=== PATIENT | male | born 1955 | race Two or more races ===

== ENCOUNTER 2024-03-04 17:11 | Inpatient (IN) | payer OTHER ==
[2024-03-04 18:30] VITALS: BMI 18.2
[2024-03-04] MEDS ORDERED: ACETAMINOPHEN 325 MG TABLET (FP) PO PRN (19:47)
[2024-03-04] MEDS ORDERED: LOPERAMIDE HCL 2 MG CAPSULE PO PRN (19:47)
[2024-03-04] MEDS ORDERED: BENZONATATE 200 MG CAPSULE PO PRN (19:47)
[2024-03-04] MEDS ORDERED: MAG HYDROX/AL HYDROX/SIMETH 30 ML UNIT-DOSE CUP PO PRN (19:47)
[2024-03-04] MEDS ORDERED: IBUPROFEN 600 MG TABLET (FP) PO PRN (19:47)
[2024-03-04] MEDS ORDERED: hydrOXYzine PAMOATE 25 MG CAPSULE (FP) PO PRN (19:47)
[2024-03-04] MEDS ORDERED: BENZOCAINE/MENTHOL (CHLORASEPTIC ) LOZENGE MM PRN (19:47)
[2024-03-04] MEDS ORDERED: guaiFENesin 600 MG TABLET.ER (FP) PO PRN (19:47)
[2024-03-04] MEDS ORDERED: NALOXONE HCL 0.4 MG/ML VIAL IM PRN (19:47)
[2024-03-04] MEDS ORDERED: MAGNESIUM HYDROX 2400MG/30ML ORAL SUSPENSION 30 ML CUP PO PRN (19:47)
[2024-03-04] MEDS ORDERED: NALOXONE (NARCAN) HCL 4 MG/0.1 ML SPRAY NS PRN (19:47)
[2024-03-04] MEDS ORDERED: POLYETHYLENE GLYCOL (HEALTHYLAX) 3350 17 GM PACKET PO PRN (19:47)
[2024-03-04] MEDS ORDERED: IBUPROFEN 400 MG TABLET (FP) PO PRN (19:47)
[2024-03-04] MEDS: MELATONIN 5 MG TABLETS PO SCH (21:47)
[2024-03-04] MEDS: THIAMINE 100 MG TABLET PO SCH (21:47)
[2024-03-05] MEDS ORDERED: methaDONE HCL 10 MG TABLET PO SCH (09:30)
[2024-03-05] MEDS ORDERED: PRENATAL VITAMINS W/ FOLIC ACID TABLET (FP) PO SCH (10:00)
[2024-03-05] MEDS: PRENATAL VITAMINS W/ FOLIC ACID TABLET (FP) PO SCH (10:29)
[2024-03-05 11:50] LABS: HEMATOCRIT 36.9 % (35.4-49); MCH 28.8 pg (25.7-33.7); MCHC 32.7 g/dl (32.0-35.9); MEAN CELL VOLUME 88.1 fl (80-96); MEAN PLT VOLUME 8.7 fl (7.5-11.1); PLATELET COUNT 206 10^3/uL (134-434); RBC 4.19 M/mm3 (4.00-5.60); RDW 14.9 % (11.9-15.9); WHITE BLOOD COUNT 4.6 K/mm3 (4.0-10.0)
[2024-03-05 11:55] LABS: CHLORIDE 106 mmol/L (98-107); POTASSIUM 4.4 mmol/L (3.5-5.1); SODIUM 143 mmol/L (136-145)
[2024-03-05 12:07] LABS: CALCIUM 9.1 mg/dL (8.5-10.1)
[2024-03-05 12:08] LABS: ALBUMIN 3.7 g/dl (3.4-5.0); ANION GAP 4 mmol/L (4-13); BLOOD UREA NITROGEN 20.6 mg/dL (7-18); CO2 33 mmol/L (21-32); GLUCOSE,RANDOM 118 mg/dL (74-106)
[2024-03-05 12:11] LABS: SGPT/ALT 14 U/L (13-61)
[2024-03-05 12:12] LABS: BILIRUBIN,TOTAL 0.4 mg/dL (0.2-1); SGOT/AST 12 U/L (15-37); TOT PROT 7.2 g/dl (6.4-8.2)
[2024-03-05 12:14] LABS: ALK PHOS 69 U/L (45-117)
[2024-03-05 13:20] LABS: SYPHILIS W/ RPR CONF REACTIVE (NONREACTIVE)
[2024-03-06 12:39] LABS: PH,URINE 5.5 (5.0-8.0); URINE APPEARANCE CLEAR; URINE BILIRUBIN NEGATIVE (NEGATIVE); URINE COLOR YELLOW; URINE GLUCOSE (UA) NEGATIVE (NEGATIVE); URINE KETONE NEGATIVE (NEGATIVE); URINE LEUK ESTERASE NEGATIVE (NEGATIVE); URINE NITRITE NEGATIVE (NEGATIVE); URINE PROTEIN NEGATIVE (NEGATIVE); URINE UROBILINOGEN 0.2 mg/dL (0.2-1.0)
[2024-03-08] MEDS ORDERED: NICOTINE POLACRILEX 4 MG LOZENGE BC PRN (12:56)
[2024-03-08] MEDS ORDERED: NICOTINE POLACRILEX 4 MG GUM BUC PRN (12:56)
[2024-03-08] MEDS: NICOTINE 14 MG/24 HOURS TOPICAL PATCH TD SCH (13:06)
[2024-03-09] MEDS ORDERED: methaDONE HCL 40 MG DISPERSABLE TABLET PO SCH (06:00)
[2024-03-09] MEDS: NICOTINE 7 MG/24 HOURS TOPICAL PATCH TD SCH (10:20)
[2024-03-09 14:17] LABS: HIV INTERPRETATION NEGATIVE (NEGATIVE)
[2024-03-10 06:34] VITALS: BP 153/84; PULSE 71; RESP 20; TEMP 97.7
== END 2024-03-10 09:19 | disposition home or self-care (01) | DRG 895 ==
LOC: YASAS 17:11 → Y3NR 20:03 → Y3E 03-05 11:34
PROVIDERS: ADMIT Allergy & Immunology; ATTEND Psychiatry & Neurology Pain Medicine
PROC: HZ42ZZZ Group Counseling for Substance Abuse Treatment, Cognitive-Behavioral (ICD-10-PCS; principal; 2024-03-04)
DX: F14.20 Cocaine dependence, uncomplicated (principal); F11.20 Opioid dependence, uncomplicated; F17.210 Nicotine dependence, cigarettes, uncomplicated; F41.9 Anxiety disorder, unspecified; I10 Essential (primary) hypertension; M54.50 Low back pain, unspecified; G89.29 Other chronic pain; Z86.19 Personal history of other infectious and parasitic diseases
CPT/HCPCS: 36415; 80053; 80305; 80307; 81003; 82962; 85027; 86593; 86780; 86803; 87389; 87522; 87811; 93005; 93010